=== PATIENT | male | born 1955 | race African-American/Black ===

== ENCOUNTER 2016-11-14 16:54 | Inpatient (IN) | payer MEDICARE, MEDICAID ==
[~2016-11-14] VITALS: Ht 153.4 cm; Wt 86.7 kg
[~2016-11-14 16:54] MED LIST: AMLO2.5T PO; ASPI-515 PO; ASPI-621 PO; BISA10SU2 PR; CLON-275 PO; CLON1PAT8 TP; DOCU-30 PO; ENAL20TA PO; ENAL5TAB34 PO; GABA300C10 PO; INSU100C5 SQ-INSULIN; INSU100I13 SQ; INSU100I18 SQ; INSU100V5 SQ-INSULIN; INSU100V8 SQ; INSU500V SQ; INSULIN 70/30; LISI-170 PO; LISI-420 PO; METF10002 PO; METF500T4 PO; METO25TA35 PO; ONDA4TAB10 PO; OXYC15TA60 PO; OXYC30TA66 PO; PANT40TA3 PO
[2016-11-14 18:25] LABS: BLOOD UREA NITROGEN 23 mg/dL (7-18)
[2016-11-14 18:30] LABS: ASPARTATE AMINO TRANSFERASE 49 U/L (15-37)
[2016-11-14] MEDS ORDERED: SODIUM CHLORIDE 0.9% 1,000ML IVBOLUS ONE (19:30)
[2016-11-14] MEDS ORDERED: SODIUM CHLORIDE FLUSH 10ML SYR IVF ONE (19:30)
[2016-11-14] MEDS ORDERED: MORPHINE SULFATE 4 MG/ML, 1ML IVPush PRN (20:00)
[2016-11-14] MEDS ORDERED: ONDANSETRON 2MG/ML, 2ML IVPush ONE (20:00)
[2016-11-14] MEDS ORDERED: INSULIN REGULAR 100 UNITS/ML, 3ML VIAL SQ-INSULIN ONE (20:30)
[2016-11-14 21:24] LABS: PATH.CAST-FLAG NOT PRESENT; SPERM-FLAG NOT PRESENT; SRC-FLAG NOT PRESENT; XTAL-FLAG NOT PRESENT; YLC-FLAG NOT PRESENT
[2016-11-14] MEDS ORDERED: MORPHINE SULFATE 4 MG/ML, 1ML ONE (21:27)
[2016-11-14] MEDS ORDERED: ONDANSETRON 2MG/ML, 2ML ONE (21:27)
[2016-11-15] VITALS (7 sets, daily range): BP systolic 88–138; BP diastolic 59–89
[2016-11-15] MEDS ORDERED: ONDANSETRON ODT 4 MG PO PRN (01:00)
[2016-11-15] MEDS ORDERED: ACETAMINOPHEN 325 MG TABLET PO PRN (01:00)
[2016-11-15] MEDS ORDERED: DOCUSATE 100 MG CAPSULE PO PRN (01:00)
[2016-11-15] MEDS: INSULIN DETEMIR 100 UNITS/ML, PEN SQ-INSULIN SCH ×2 (01:44→21:36)
[2016-11-15] MEDS: GABAPENTIN 300 MG CAPSULE PO SCH ×2 (10:06→21:34)
[2016-11-15] MEDS: METOPROLOL TARTRATE 25 MG TABLET PO SCH ×2 (10:06→21:37)
[2016-11-15] MEDS: ASPIRIN 81 MG TABLET EC PO SCH (10:06)
[2016-11-15] MEDS: LISINOPRIL 20 MG TABLET PO SCH ×2 (10:07→21:35)
[2016-11-15] MEDS: HEPARIN 5,000 UNITS/ML, 1ML SQ SCH ×2 (10:07→21:35)
[2016-11-15] MEDS: INSULIN ASPART 100 UNITS/ML, PEN SQ-INSULIN SCH ×4 (11:05→21:36)
[2016-11-15 11:33] LABS: BLOOD UREA NITROGEN 25 mg/dL (7-18)
[2016-11-15] MEDS: TAMSULOSIN 0.4 MG CAP.ER.24H PO SCH (18:08)
[2016-11-16 02:20] VITALS: BP 113/80
[2016-11-16 05:51] LABS: BLOOD UREA NITROGEN 30 mg/dL (7-18)
[2016-11-16] MEDS: INSULIN ASPART 100 UNITS/ML, PEN SQ-INSULIN SCH ×3 (07:00→16:51)
[2016-11-16 07:17] VITALS: BP 97/64
[2016-11-16] MEDS: ASPIRIN 81 MG TABLET EC PO SCH (08:58)
[2016-11-16] MEDS: TAMSULOSIN 0.4 MG CAP.ER.24H PO SCH (08:59)
[2016-11-16] MEDS: HEPARIN 5,000 UNITS/ML, 1ML SQ SCH (09:00)
[2016-11-16] MEDS: METOPROLOL TARTRATE 25 MG TABLET PO SCH (09:00)
[2016-11-16] MEDS: LISINOPRIL 20 MG TABLET PO SCH (09:00)
[2016-11-16] MEDS: GABAPENTIN 300 MG CAPSULE PO SCH (09:01)
[2016-11-16 13:14] VITALS: BP 104/71
[2016-11-16] MEDS ORDERED: TAMS-11 PO (15:47)
[2016-11-16] MEDS ORDERED: INSU100I18 SQ (15:47)
[2016-11-16] MEDS ORDERED: METO25TA35 PO (15:47)
[2016-11-16] MEDS ORDERED: INSU100V8 SQ (15:47)
[2016-11-16] MEDS ORDERED: LISI-170 PO (15:47)
[2016-11-17] MEDS ORDERED: LISINOPRIL 20 MG TABLET PO SCH (09:00)
== END 2016-11-16 18:34 | disposition home or self-care (01) | DRG 682 ==
LOC: ED 21:28 → EDIP 21:30 → 4EST 11-15
PROVIDERS: ADMIT Internal Medicine; ATTEND Internal Medicine
PROC: 0T9B70Z Drainage of Bladder with Drainage Device, Via Natural or Artificial Opening (ICD-10-PCS; principal; 2016-11-14)
DX: N17.9 Acute kidney failure, unspecified (principal); E11.00 Type 2 diabetes mellitus with hyperosmolarity without nonketotic hyperglycemic-hyperosmolar coma (NKHHC); K86.1 Other chronic pancreatitis; E11.65 Type 2 diabetes mellitus with hyperglycemia; R33.9 Retention of urine, unspecified; N28.9 Disorder of kidney and ureter, unspecified; F20.9 Schizophrenia, unspecified; F31.9 Bipolar disorder, unspecified; F41.1 Generalized anxiety disorder; F10.21 Alcohol dependence, in remission; I11.9 Hypertensive heart disease without heart failure; I95.9 Hypotension, unspecified; N31.9 Neuromuscular dysfunction of bladder, unspecified; Z79.4 Long term (current) use of insulin; Z82.49 Family history of ischemic heart disease and other diseases of the circulatory system; Z90.49 Acquired absence of other specified parts of digestive tract; Z91.19 Patient's noncompliance with other medical treatment and regimen; T46.4X5A Adverse effect of angiotensin-converting-enzyme inhibitors, initial encounter
CPT/HCPCS: 36415; 74176; 76770; 80048; 80053; 81001; 82010; 82962; 83036; 85025; 93005; 96361; 96374; 96375; J1644; J1815; J2405; J7030

== ENCOUNTER → 2016-11-19 | Outpatient (CLI) | payer MEDICARE, MEDICAID ==
[~2016-11-19] MED LIST changes: +TAMS-11 PO
[2016-11-19 13:09] LABS: BLOOD UREA NITROGEN 21 mg/dL (7-18)
[2016-11-19 13:20] LABS: ASPARTATE AMINO TRANSFERASE 69 U/L (15-37)
== END | disposition home or self-care (01) ==
LOC: CFH 10:57
PROVIDERS: ATTEND Registered Nurse
DX: E11.65 Type 2 diabetes mellitus with hyperglycemia (principal)
CPT/HCPCS: 36415; 80053; 80061; 83036; 84443; 85025

== ENCOUNTER 2016-12-25 01:57 | Inpatient (IN) | payer MEDICARE, MEDICAID ==
[~2016-12-25] VITALS: Ht 162.6 cm; Wt 88.6 kg
[2016-12-25] MEDS ORDERED: NITROGLYCERIN OINT 2%, 1GM TP ONE ×2 (02:30→02:35)
[2016-12-25 03:00] LABS: BLOOD UREA NITROGEN 34 mg/dL (7-18)
[2016-12-25 03:07] LABS: ASPARTATE AMINO TRANSFERASE 139 U/L (15-37); IS PT STATUS REG ER OR PRE ER? YES
[2016-12-25] MEDS ORDERED: ASPIRIN 81 MG TABLET CHEW ONE ×3 (03:56→08:27)
[2016-12-25] MEDS ORDERED: ASPIRIN 81 MG TABLET CHEW PO ONE (04:00)
[2016-12-25] MEDS ORDERED: SODIUM CHLORIDE 0.9% 1,000ML IVBOLUS ONE (04:00)
[2016-12-25] MEDS ORDERED: SODIUM CHLORIDE FLUSH 10ML SYR IVF ONE (04:00)
[2016-12-25 04:01] LABS: DAU SCREEN DISCLAIMER
[2016-12-25] MEDS: HEPARIN 5,000 UNITS/ML, 1ML SQ SCH ×3 (04:30→21:40)
[2016-12-25] MEDS ORDERED: ONDANSETRON 2MG/ML, 2ML IVPush PRN (04:30)
[2016-12-25] MEDS ORDERED: HEPARIN 5,000 UNITS/ML, 1ML ONE (05:24)
[2016-12-25] MEDS: INSULIN ASPART 100 UNITS/ML, PEN SQ-INSULIN SCH ×4 (07:00→21:00)
[2016-12-25] MEDS: ASPIRIN 81 MG TABLET EC PO SCH (08:27)
[2016-12-25] MEDS ORDERED: TAMSULOSIN 0.4 MG CAP.ER.24H ONE (08:27)
[2016-12-25] MEDS: METOPROLOL TARTRATE 25 MG TABLET PO SCH ×2 (08:27→21:41)
[2016-12-25] MEDS: TAMSULOSIN 0.4 MG CAP.ER.24H PO SCH (08:27)
[2016-12-25] MEDS ORDERED: METOPROLOL TARTRATE 50 MG TABLET ONE (08:27)
[2016-12-25] MEDS: FAMOTIDINE 20 MG TABLET PO SCH ×2 (08:27→21:41)
[2016-12-25] MEDS ORDERED: FAMOTIDINE 20 MG TABLET ONE (08:27)
[2016-12-25] MEDS ORDERED: ONDANSETRON 2MG/ML, 2ML ONE (08:34)
[2016-12-25] MEDS ORDERED: MORPHINE SULFATE 4 MG/ML, 1ML ONE (08:34)
[2016-12-25] MEDS: SENNA/DOCUSATE TABLET PO SCH (09:00)
[2016-12-25] MEDS: GABAPENTIN 300 MG CAPSULE PO SCH ×2 (09:00→21:42)
[2016-12-25] MEDS ORDERED: HYDROcodone/APAP 5/325 TABLET ONE (09:25)
[2016-12-25] MEDS: HYDROcodone/APAP 5/325 TABLET PO PRN ×2 (09:28→19:13)
[2016-12-25 10:12] VITALS: BP 144/96
[2016-12-25] MEDS: SODIUM CHLORIDE 0.9% 1,000 ML IV SCH ×2 (10:12→21:40)
[2016-12-25 12:26] LABS: IS PT STATUS REG ER OR PRE ER? NO
[2016-12-25 14:55] VITALS: BP 106/68
[2016-12-25 16:24] LABS: IS PT STATUS REG ER OR PRE ER? NO
[2016-12-25] MEDS ORDERED: INSULIN DETEMIR 100 UNITS/ML, PEN SQ-INSULIN SCH (21:00)
[2016-12-25 21:26] LABS: IS PT STATUS REG ER OR PRE ER? NO
[2016-12-25 21:37] VITALS: BP 132/88
[2016-12-25] MEDS: morphine SULFATE 10 MG/ML, 1ML IVPush PRN (21:41)
[2016-12-26] MEDS: HYDROcodone/APAP 5/325 TABLET PO PRN ×2 (00:22→06:36)
[2016-12-26] MEDS: D5%-0.45% NACL 1,000 ML IV SCH ×2 (00:23→13:20)
[2016-12-26 01:42] VITALS: BP 103/68
[2016-12-26] MEDS: HEPARIN 5,000 UNITS/ML, 1ML SQ SCH ×2 (05:56→13:30)
[2016-12-26] MEDS: morphine SULFATE 10 MG/ML, 1ML IVPush PRN (05:56)
[2016-12-26 06:25] LABS: ASPARTATE AMINO TRANSFERASE 68 U/L (15-37); BLOOD UREA NITROGEN 35 mg/dL (7-18)
[2016-12-26] MEDS: INSULIN ASPART 100 UNITS/ML, PEN SQ-INSULIN SCH ×3 (07:00→16:00)
[2016-12-26] MEDS: GABAPENTIN 300 MG CAPSULE PO SCH (08:01)
[2016-12-26] MEDS: SENNA/DOCUSATE TABLET PO SCH (08:01)
[2016-12-26] MEDS: FAMOTIDINE 20 MG TABLET PO SCH (08:01)
[2016-12-26] MEDS: TAMSULOSIN 0.4 MG CAP.ER.24H PO SCH (08:01)
[2016-12-26] MEDS: ASPIRIN 81 MG TABLET EC PO SCH (08:01)
[2016-12-26] MEDS: METOPROLOL TARTRATE 25 MG TABLET PO SCH (08:01)
[2016-12-26 08:08] VITALS: BP 112/76
[2016-12-26] MEDS ORDERED: REGADENOSON 0.4 MG/5 ML SYRINGE ONE (08:26)
[2016-12-26 13:49] VITALS: BP 119/82
[2016-12-26] MEDS ORDERED: TAMS-11 PO (14:26)
[2016-12-26] MEDS ORDERED: METO25TA35 PO (14:26)
[2016-12-26] MEDS ORDERED: ASPI-621 PO (14:26)
[2016-12-26] MEDS ORDERED: TRAM50TA2 PO (14:26)
[2016-12-26] MEDS ORDERED: GABA300C10 PO (14:26)
[2016-12-27] MEDS ORDERED: FAMOTIDINE 20 MG TABLET PO SCH (09:00)
== END 2016-12-26 18:25 | disposition home or self-care (01) | DRG 280 ==
LOC: ED 02:37 → EDIP 03:55 → 5SO 09:57
PROVIDERS: ADMIT Internal Medicine
DX: I21.4 Non-ST elevation (NSTEMI) myocardial infarction (principal); N17.0 Acute kidney failure with tubular necrosis; I42.9 Cardiomyopathy, unspecified; I16.9 Hypertensive crisis, unspecified; I13.10 Hypertensive heart and chronic kidney disease without heart failure, with stage 1 through stage 4 chronic kidney disease, or unspecified chronic kidney disease; F20.9 Schizophrenia, unspecified; F31.9 Bipolar disorder, unspecified; F41.1 Generalized anxiety disorder; N18.3 Chronic kidney disease, stage 3 (moderate); E11.22 Type 2 diabetes mellitus with diabetic chronic kidney disease; I16.0 Hypertensive urgency; N40.0 Benign prostatic hyperplasia without lower urinary tract symptoms; E78.5 Hyperlipidemia, unspecified; F15.10 Other stimulant abuse, uncomplicated; Z90.49 Acquired absence of other specified parts of digestive tract; Z91.19 Patient's noncompliance with other medical treatment and regimen; Z59.0 Homelessness; Z79.4 Long term (current) use of insulin
CPT/HCPCS: 36415; 71010; 78452; 80053; 80307; 82962; 84484; 85025; 93005; 93017; 96361; 96374; J1644; J2405; J2785; A9502; C9898; J2270; J7030

== ENCOUNTER 2017-02-17 14:27 | Emergency (ER) | payer MEDICARE, MEDICAID ==
[~2017-02-17] VITALS: Ht 162.6 cm; Wt 87.0 kg
[~2017-02-17 14:27] MED LIST changes: +TRAM50TA2 PO
[2017-02-17] MEDS ORDERED: SODIUM CHLORIDE 0.9% 1,000 ML IV ONE (14:58)
[2017-02-17] MEDS ORDERED: HYDROmorphone 1 MG/ML, 1ML IVPush PRN (15:00)
[2017-02-17] MEDS ORDERED: ONDANSETRON 2MG/ML, 2ML IVPush ONE (15:00)
[2017-02-17] MEDS ORDERED: FAMOTIDINE 20 MG/2 ML IVP ONE (15:00)
[2017-02-17 15:36] LABS: ASPARTATE AMINO TRANSFERASE 68 U/L (15-37); BLOOD UREA NITROGEN 17 mg/dL (7-18)
[2017-02-17 17:30] VITALS: BP 168/99
[2017-02-18] MEDS ORDERED: ONDA4TAB10 PO (20:00)
[2017-02-18] MEDS ORDERED: OXYC-302 PO (20:00)
== END 2017-02-17 17:33 | disposition home or self-care (01) ==
LOC: ED 17:27
DX: K85.30 Drug induced acute pancreatitis without necrosis or infection (principal); K85.20 Alcohol induced acute pancreatitis without necrosis or infection; R11.12 Projectile vomiting; E11.9 Type 2 diabetes mellitus without complications; I11.9 Hypertensive heart disease without heart failure; Z90.49 Acquired absence of other specified parts of digestive tract; E78.5 Hyperlipidemia, unspecified
CPT/HCPCS: 36415; 80053; 81001; 83690; 85025; 87086; 99284

== ENCOUNTER 2017-02-18 19:43 | Inpatient (IN) | payer MEDICARE, MEDICAID ==
[~2017-02-18] VITALS: Ht 162.6 cm; Wt 85.0 kg
[2017-02-18] MEDS ORDERED: ONDA4TAB10 PO (20:00)
[2017-02-18] MEDS ORDERED: LABETALOL 5MG/ML, 20ML IVPush ONE (20:00)
[2017-02-18] MEDS ORDERED: SODIUM CHLORIDE FLUSH 10ML SYR IVF ONE (20:00)
[2017-02-18] MEDS ORDERED: OXYC-302 PO (20:00)
[2017-02-18] MEDS ORDERED: LABETALOL 5MG/ML, 20ML ONE (20:08)
[2017-02-18 20:16] LABS: ASPARTATE AMINO TRANSFERASE 46 U/L (15-37); BLOOD UREA NITROGEN 12 mg/dL (7-18)
[2017-02-18 21:36] LABS: PATH.CAST-FLAG NOT PRESENT; SPERM-FLAG NOT PRESENT; SRC-FLAG NOT PRESENT; XTAL-FLAG NOT PRESENT; YLC-FLAG NOT PRESENT
[2017-02-18] MEDS ORDERED: SODIUM CHLORIDE 0.9% 1,000 ML IV ONE (21:51)
[2017-02-18] MEDS ORDERED: SODIUM CHLORIDE FLUSH 10ML SYR IVF PRN (22:00)
[2017-02-18] MEDS ORDERED: hydrALAzine 20 MG/ML, 1ML ONE (22:29)
[2017-02-18] MEDS ORDERED: MORPHINE SULFATE 4 MG/ML, 1ML ONE (22:29)
[2017-02-18] MEDS ORDERED: ACETAMINOPHEN 325 MG TABLET PO PRN (22:30)
[2017-02-18] MEDS ORDERED: BISACODYL 10 MG SUPP PR PRN (22:30)
[2017-02-18] MEDS ORDERED: ONDANSETRON 2MG/ML, 2ML IVPush PRN (22:30)
[2017-02-18] MEDS ORDERED: METOPROLOL TARTRATE 25 MG TABLET PO SCH (22:30)
[2017-02-18] MEDS: morphine SULFATE 10 MG/ML, 1ML IVPush PRN (22:31)
[2017-02-18] MEDS: hydrALAzine 20 MG/ML, 1ML IV PRN (22:32)
[2017-02-18] MEDS: SODIUM CHLORIDE 0.9% 1,000 ML IV SCH (22:39)
[2017-02-18] MEDS ORDERED: ONDANSETRON 2MG/ML, 2ML IVPush ONE (23:30)
[2017-02-18] MEDS ORDERED: HYDROmorphone 1 MG/ML, 1ML IVPush PRN (23:30)
[2017-02-18] MEDS ORDERED: HYDROmorphone 1 MG/ML, 1ML ONE (23:35)
[2017-02-18] MEDS ORDERED: ONDANSETRON 2MG/ML, 2ML ONE (23:35)
[2017-02-19 00:49] VITALS: BP 131/83
[2017-02-19] MEDS: HEPARIN 5,000 UNITS/ML, 1ML SQ SCH ×3 (01:33→17:11)
[2017-02-19] MEDS: GABAPENTIN 300 MG CAPSULE PO SCH ×3 (01:34→20:48)
[2017-02-19] MEDS: METOPROLOL TARTRATE 50 MG TABLET PO SCH ×3 (01:34→20:48)
[2017-02-19] MEDS: INSULIN ASPART 100 UNITS/ML, PEN SQ-INSULIN SCH ×4 (03:22→17:12)
[2017-02-19 03:25] VITALS: BP 154/96
[2017-02-19] MEDS: morphine SULFATE 10 MG/ML, 1ML IVPush PRN ×3 (03:31→20:59)
[2017-02-19 05:45] LABS: ASPARTATE AMINO TRANSFERASE 42 U/L (15-37); BLOOD UREA NITROGEN 13 mg/dL (7-18)
[2017-02-19 05:53] LABS: IS PT STATUS REG ER OR PRE ER? NO
[2017-02-19 07:06] VITALS: BP 144/94
[2017-02-19] MEDS: SODIUM CHLORIDE 0.9% 1,000 ML IV SCH (07:30)
[2017-02-19] MEDS: TAMSULOSIN 0.4 MG CAP.ER.24H PO SCH (09:04)
[2017-02-19] MEDS: ASPIRIN 81 MG TABLET EC PO SCH (09:04)
[2017-02-19 12:11] LABS: IS PT STATUS REG ER OR PRE ER? NO
[2017-02-19 13:48] VITALS: BP 143/91
[2017-02-19 19:31] VITALS: BP 150/94
[2017-02-19] MEDS ORDERED: SODIUM CHLORIDE 0.9% 1,000 ML IV SCH (22:22)
[2017-02-20] MEDS: INSULIN ASPART 100 UNITS/ML, PEN SQ-INSULIN SCH ×5 (01:00→21:57)
[2017-02-20 01:18] VITALS: BP 130/87
[2017-02-20] MEDS: HEPARIN 5,000 UNITS/ML, 1ML SQ SCH ×3 (01:38→18:01)
[2017-02-20] MEDS: morphine SULFATE 10 MG/ML, 1ML IVPush PRN ×2 (05:43→15:46)
[2017-02-20 05:57] LABS: BLOOD UREA NITROGEN 16 mg/dL (7-18)
[2017-02-20 05:58] LABS: ASPARTATE AMINO TRANSFERASE 45 U/L (15-37)
[2017-02-20 07:00] VITALS: BP 160/98
[2017-02-20] MEDS: GABAPENTIN 300 MG CAPSULE PO SCH ×2 (09:14→21:49)
[2017-02-20] MEDS: METOPROLOL TARTRATE 50 MG TABLET PO SCH ×2 (09:14→21:49)
[2017-02-20] MEDS: TAMSULOSIN 0.4 MG CAP.ER.24H PO SCH (09:14)
[2017-02-20] MEDS: ASPIRIN 81 MG TABLET EC PO SCH (09:15)
[2017-02-20 15:43] VITALS: BP 167/102
[2017-02-20] MEDS ORDERED: LACTULOSE 20 GM/30 ML UDC PO PRN (17:00)
[2017-02-20 18:27] VITALS: BP 155/98
[2017-02-20] MEDS ORDERED: morphine SULFATE 10 MG/ML, 1ML IVPush PRN (22:30)
[2017-02-21] VITALS (9 sets, daily range): BP systolic 130–190; BP diastolic 83–121
[2017-02-21] MEDS: HEPARIN 5,000 UNITS/ML, 1ML SQ SCH ×3 (00:52→17:04)
[2017-02-21] MEDS: hydrALAzine 20 MG/ML, 1ML IV PRN (00:52)
[2017-02-21] MEDS: OXYcodone IR 5MG TABLET PO PRN (01:55)
[2017-02-21] MEDS ORDERED: morphine SULFATE 10 MG/ML, 1ML IVPush PRN (02:30)
[2017-02-21 06:05] LABS: ASPARTATE AMINO TRANSFERASE 87 U/L (15-37); BLOOD UREA NITROGEN 15 mg/dL (7-18)
[2017-02-21] MEDS: INSULIN ASPART 100 UNITS/ML, PEN SQ-INSULIN SCH ×4 (07:00→20:59)
[2017-02-21] MEDS: METOPROLOL TARTRATE 50 MG TABLET PO SCH ×2 (09:57→19:01)
[2017-02-21] MEDS: ASPIRIN 81 MG TABLET EC PO SCH (09:57)
[2017-02-21] MEDS: TAMSULOSIN 0.4 MG CAP.ER.24H PO SCH (09:57)
[2017-02-21] MEDS: GABAPENTIN 300 MG CAPSULE PO SCH ×2 (09:57→20:50)
[2017-02-21] MEDS ORDERED: METHYLNALTREXONE 12 MG/0.6 ML SQ SCH (15:00)
[2017-02-22] MEDS: HEPARIN 5,000 UNITS/ML, 1ML SQ SCH ×2 (01:32→09:40)
[2017-02-22 01:33] VITALS: BP 130/83
[2017-02-22] MEDS: OXYcodone IR 5MG TABLET PO PRN (05:33)
[2017-02-22 06:06] LABS: BLOOD UREA NITROGEN 13 mg/dL (7-18)
[2017-02-22 06:10] LABS: ASPARTATE AMINO TRANSFERASE 73 U/L (15-37)
[2017-02-22 07:23] VITALS: BP 126/82
[2017-02-22] MEDS: ASPIRIN 81 MG TABLET EC PO SCH (07:50)
[2017-02-22] MEDS: GABAPENTIN 300 MG CAPSULE PO SCH (07:51)
[2017-02-22] MEDS: TAMSULOSIN 0.4 MG CAP.ER.24H PO SCH (07:51)
[2017-02-22] MEDS: METOPROLOL TARTRATE 50 MG TABLET PO SCH (07:51)
[2017-02-22] MEDS: INSULIN ASPART 100 UNITS/ML, PEN SQ-INSULIN SCH ×2 (07:56→11:32)
[2017-02-22] MEDS ORDERED: INSU100V8 SQ (12:09)
== END 2017-02-22 12:50 | disposition home or self-care (01) | DRG 438 ==
LOC: ED 22:22 → EDIP 22:41 → 4NOR 02-19 00:12
PROVIDERS: ADMIT Internal Medicine; ATTEND Internal Medicine
DX: K85.30 Drug induced acute pancreatitis without necrosis or infection (principal); E43 Unspecified severe protein-calorie malnutrition; E87.1 Hypo-osmolality and hyponatremia; I13.0 Hypertensive heart and chronic kidney disease with heart failure and stage 1 through stage 4 chronic kidney disease, or unspecified chronic kidney disease; I42.8 Other cardiomyopathies; F15.20 Other stimulant dependence, uncomplicated; I42.7 Cardiomyopathy due to drug and external agent; F31.9 Bipolar disorder, unspecified; E11.22 Type 2 diabetes mellitus with diabetic chronic kidney disease; E78.5 Hyperlipidemia, unspecified; F41.1 Generalized anxiety disorder; G89.29 Other chronic pain; T43.625A Adverse effect of amphetamines, initial encounter; Y92.89 Other specified places as the place of occurrence of the external cause; I25.2 Old myocardial infarction; I50.9 Heart failure, unspecified; K59.00 Constipation, unspecified; N18.3 Chronic kidney disease, stage 3 (moderate); N40.0 Benign prostatic hyperplasia without lower urinary tract symptoms; Z79.4 Long term (current) use of insulin; Z90.49 Acquired absence of other specified parts of digestive tract; Z91.19 Patient's noncompliance with other medical treatment and regimen; Z79.82 Long term (current) use of aspirin; Z68.32 Body mass index [BMI] 32.0-32.9, adult; Z82.49 Family history of ischemic heart disease and other diseases of the circulatory system; Z80.9 Family history of malignant neoplasm, unspecified
CPT/HCPCS: 36415; 71010; 76700; 80047; 80053; 81001; 82962; 83036; 83690; 83880; 84484; 85025; 87086; 96374; 96375; 99284; J1170; J1644; J1815; J2405; J0360; J2270; J7030

== ENCOUNTER 2017-05-01 05:38 | Inpatient (IN) | payer MEDICARE, MEDICAID ==
[~2017-05-01] VITALS: Ht 162.6 cm; Wt 82.1 kg
[~2017-05-01 05:38] MED LIST changes: +DOCU-131 PO; -DOCU-30 PO; -ENAL5TAB34 PO; +ENAL5TAB70 PO; +OXYC-302 PO
[2017-05-01] MEDS ORDERED: SODIUM CHLORIDE 0.9% 1,000 ML IV ONE (05:52)
[2017-05-01] MEDS ORDERED: ONDANSETRON 2MG/ML, 2ML ONE (06:00)
[2017-05-01] MEDS ORDERED: SODIUM CHLORIDE 0.9% 1,000ML IVBOLUS ONE (06:00)
[2017-05-01] MEDS ORDERED: SODIUM CHLORIDE FLUSH 10ML SYR IVF ONE (06:00)
[2017-05-01] MEDS ORDERED: ONDANSETRON 2MG/ML, 2ML IVPush ONE (06:00)
[2017-05-01 06:26] LABS: HEMATOCRIT 54.9 % (39.2-51.8); HEMOGLOBIN 18.5 g/dL (13.7-18.0); WHITE BLOOD COUNT 7.8 x10^3/uL (3.4-10)
[2017-05-01 06:37] LABS: ASPARTATE AMINO TRANSFERASE 58 U/L (15-37); BLOOD UREA NITROGEN 29 mg/dL (7-18)
[2017-05-01] MEDS ORDERED: HYDROmorphone 1 MG/ML, 1ML IV ONE (07:30)
[2017-05-01] MEDS ORDERED: HYDROmorphone 1 MG/ML, 1ML ONE (07:37)
[2017-05-01] MEDS ORDERED: HYDROmorphone 2 MG/ML, 1ML ONE ×2 (08:13→10:55)
[2017-05-01] MEDS: HYDROmorphone 1 MG/ML, 1ML IVPush PRN ×2 (08:30→11:00)
[2017-05-01 08:55] LABS: PATH.CAST-FLAG NOT PRESENT; SPERM-FLAG NOT PRESENT; SRC-FLAG NOT PRESENT; XTAL-FLAG NOT PRESENT; YLC-FLAG NOT PRESENT
[2017-05-01] MEDS ORDERED: LABETALOL 5MG/ML, 20ML IVPush ONE ×2 (09:00→11:00)
[2017-05-01] MEDS ORDERED: ONDANSETRON 2MG/ML, 2ML IVPush PRN (11:30)
[2017-05-01] MEDS ORDERED: METOCLOPRAMIDE 5 MG/ML, 2ML IVPush PRN (11:30)
[2017-05-01] MEDS ORDERED: LORazepam 2 MG/ML, 1ML IVPush PRN (11:30)
[2017-05-01] MEDS ORDERED: FAMOTIDINE 20 MG/2 ML IVPush SCH (12:00)
[2017-05-01] MEDS ORDERED: GLUCAGON 1 MG IM PRN (13:00)
[2017-05-01] MEDS ORDERED: DEXTROSE 4 GM TAB.CHEW PO PRN (13:00)
[2017-05-01] MEDS ORDERED: INSULIN REGULAR 100 UNITS/ML, 3ML VIAL SQ-INSULIN SCH (13:00)
[2017-05-01] MEDS ORDERED: DEXTROSE 50%, 50ML SYRINGE IVPush PRN (13:00)
[2017-05-01] MEDS ORDERED: MORPHINE SULFATE 4 MG/ML, 1ML ONE ×3 (13:22→21:16)
[2017-05-01] MEDS: morphine SULFATE 10 MG/ML, 1ML IVPush PRN ×3 (13:39→21:26)
[2017-05-01] MEDS: HEPARIN 5,000 UNITS/ML, 1ML SQ SCH (13:39)
[2017-05-01 14:28] VITALS: BP 167/121
[2017-05-01] MEDS: D5%-0.45NACL+KCL 20MEQ 1,000 ML IV SCH ×2 (14:30→21:22)
[2017-05-01] MEDS: LABETALOL 5MG/ML, 20ML IVPush PRN ×2 (14:30→21:22)
[2017-05-01 15:03] VITALS: BP 161/109
[2017-05-01 19:01] VITALS: BP 154/102
[2017-05-01] MEDS: SODIUM CHLORIDE FLUSH 10ML SYR IVF SCH (19:28)
[2017-05-01] MEDS: INSULIN REGULAR 100 UNITS/ML, 3ML VIAL SQ-INSULIN SCH (21:23)
[2017-05-01] MEDS: FAMOTIDINE 20 MG/2 ML IVPush SCH (21:23)
[2017-05-02 00:52] VITALS: BP 182/109
[2017-05-02] MEDS: LABETALOL 5MG/ML, 20ML IVPush PRN ×2 (01:57→13:20)
[2017-05-02] MEDS ORDERED: MORPHINE SULFATE 4 MG/ML, 1ML ONE (02:29)
[2017-05-02] MEDS: INSULIN REGULAR 100 UNITS/ML, 3ML VIAL SQ-INSULIN SCH ×4 (02:33→21:06)
[2017-05-02] MEDS: morphine SULFATE 10 MG/ML, 1ML IVPush PRN ×4 (02:33→19:56)
[2017-05-02 05:04] LABS: HEMATOCRIT 50.1 % (39.2-51.8); HEMOGLOBIN 16.8 g/dL (13.7-18.0); WHITE BLOOD COUNT 6.5 x10^3/uL (3.4-10)
[2017-05-02 05:15] VITALS: BP 148/90
[2017-05-02 05:15] LABS: BLOOD UREA NITROGEN 20 mg/dL (7-18)
[2017-05-02] MEDS: HEPARIN 5,000 UNITS/ML, 1ML SQ SCH ×2 (06:15→17:50)
[2017-05-02] MEDS: D5%-0.45NACL+KCL 20MEQ 1,000 ML IV SCH (06:15)
[2017-05-02 07:28] VITALS: BP 143/93
[2017-05-02] MEDS: SODIUM CHLORIDE FLUSH 10ML SYR IVF SCH ×2 (08:52→21:06)
[2017-05-02] MEDS: D5%-0.9% NACL 1,000 ML IV SCH ×2 (10:45→19:55)
[2017-05-02 14:30] VITALS: BP 135/105
[2017-05-02 16:13] VITALS: BP 138/90
[2017-05-02] MEDS ORDERED: HYDROmorphone 1 MG/ML, 1ML IV PRN (17:30)
[2017-05-02 19:53] VITALS: BP 149/94
[2017-05-02] MEDS: FAMOTIDINE 20 MG/2 ML IVPush SCH (21:05)
[2017-05-03 02:30] VITALS: BP 139/88
[2017-05-03] MEDS: INSULIN REGULAR 100 UNITS/ML, 3ML VIAL SQ-INSULIN SCH (03:46)
[2017-05-03] MEDS: D5%-0.9% NACL 1,000 ML IV SCH (03:47)
[2017-05-03 05:41] LABS: BLOOD UREA NITROGEN 14 mg/dL (7-18)
[2017-05-03 05:46] LABS: ASPARTATE AMINO TRANSFERASE 53 U/L (15-37)
[2017-05-03 05:47] LABS: HEMATOCRIT 46.5 % (39.2-51.8); HEMOGLOBIN 15.7 g/dL (13.7-18.0)
[2017-05-03] MEDS: HEPARIN 5,000 UNITS/ML, 1ML SQ SCH (05:57)
== END 2017-05-03 06:40 | disposition left against medical advice (07) | DRG 438 ==
LOC: ED 06:34 → EDIP 10:42 → 4WST 12:59
PROVIDERS: ADMIT Internal Medicine; ATTEND Internal Medicine
DX: K85.90 Acute pancreatitis without necrosis or infection, unspecified (principal); N17.0 Acute kidney failure with tubular necrosis; I13.0 Hypertensive heart and chronic kidney disease with heart failure and stage 1 through stage 4 chronic kidney disease, or unspecified chronic kidney disease; E11.22 Type 2 diabetes mellitus with diabetic chronic kidney disease; N18.3 Chronic kidney disease, stage 3 (moderate); E11.65 Type 2 diabetes mellitus with hyperglycemia; F15.90 Other stimulant use, unspecified, uncomplicated; F31.9 Bipolar disorder, unspecified; G47.00 Insomnia, unspecified; K59.00 Constipation, unspecified; Z59.0 Homelessness; Z91.19 Patient's noncompliance with other medical treatment and regimen; Z90.49 Acquired absence of other specified parts of digestive tract
CPT/HCPCS: 36415; 74000; 74020; 74150; 74176; 80048; 80053; 81001; 82962; 83605; 83690; 83735; 85025; 93005; 96374; 96375; 96376; J1170; J1644; J1815; J2405; J7042; J2270; J3480; J7030; S0028

== ENCOUNTER 2018-04-18 12:14 | Inpatient (IN) | payer MEDICARE, MEDICAID ==
[~2018-04-18] VITALS: Ht 162.6 cm; Wt 88.7 kg
[~2018-04-18 12:14] MED LIST changes: -AMLO2.5T PO; +AMLO2.5T3 PO; +METF500T17 PO; -METF500T4 PO
[2018-04-18] MEDS ORDERED: SODIUM CHLORIDE 0.9% 1,000ML IVBOLUS ONE ×2 (12:30→13:30)
[2018-04-18] MEDS ORDERED: LABETALOL 5MG/ML, 20ML IVPush ONE (12:30)
[2018-04-18] MEDS ORDERED: SODIUM CHLORIDE FLUSH 10ML SYR IVF ONE (12:30)
[2018-04-18] MEDS ORDERED: MORPHINE SULFATE 4 MG/ML, 1ML IVPush PRN (12:30)
[2018-04-18] MEDS ORDERED: LABETALOL 5MG/ML, 20ML ONE (12:39)
[2018-04-18] MEDS ORDERED: MORPHINE SULFATE 4 MG/ML, 1ML ONE (12:39)
[2018-04-18 12:44] LABS: BASOPHILS # (AUTO) 0.01 x10^3/uL (0-0.1); BASOPHILS % (AUTO) 0 % (0-1); EOSINOPHILS # (AUTO) 0.05 x10^3/uL (0-0.4); EOSINOPHILS % (AUTO) 1 % (1-7); LYMPHOCYTES # (AUTO) 1.51 x10^3/uL (1-3.4); LYMPHOCYTES % (AUTO) 24 % (22-44); MD NO; MEAN CORPUSCULAR HEMOGLOBIN 30.5 pg (27.5-34.5); MEAN CORPUSCULAR HGB CONC 34.1 g/dL (33.2-36.2); MEAN CORPUSCULAR VOLUME 89.3 fL (81-97); MEAN PLATELET VOLUME 8.5 fL (7.4-10.4); MONOCYTES # (AUTO) 0.43 x10^3/uL (0.2-0.8); MONOCYTES % (AUTO) 7 % (2-9); NEUTROPHILS # (AUTO) 4.27 x10^3/uL (1.8-6.8); NEUTROPHILS % (AUTO) 68 % (42-75); PLATELET COUNT 189 x10^3/uL (130-400); RED BLOOD COUNT 4.77 x10^6/uL (4.38-5.82); RED CELL DISTRIBUTION WIDTH 13.4 % (9.4-14.8)
[2018-04-18 12:50] LABS: ALBUMIN 1.9 g/dL (3.4-5.0); ANION GAP 9 mmol/L (5-15); CALCIUM 7.3 mg/dL (8.5-10.1); CHLORIDE 111 mmol/L (98-107)
[2018-04-18 12:54] LABS: CREATININE 3.18 mg/dL (0.7-1.3)
[2018-04-18 12:55] LABS: ALANINE AMINOTRANSFERASE 58 U/L (12-78); ALKALINE PHOSPHATASE 246 U/L (45-117); BILIRUBIN,TOTAL 0.5 mg/dL (0.2-1.0); TOTAL PROTEIN 6.3 g/dL (6.4-8.2)
[2018-04-18] MEDS ORDERED: ACETAMINOPHEN 325 MG TABLET PO PRN (14:00)
[2018-04-18] MEDS ORDERED: morphine SULFATE 10 MG/ML, 1ML IVPush PRN (14:00)
[2018-04-18] MEDS ORDERED: ONDANSETRON 2MG/ML, 2ML IVPush PRN (14:00)
[2018-04-18 15:02] VITALS: BP 134/100
[2018-04-18 15:32] LABS: HEMOGLOBIN A1C 6.5 % (4.2-6.3)
[2018-04-18] MEDS: HEPARIN 5,000 UNITS/ML, 1ML SQ SCH (17:13)
[2018-04-18] MEDS: D5%-0.45NACL+KCL 20MEQ 1,000 ML IV SCH (17:14)
[2018-04-18] MEDS: CEFTRIAXONE 1,000 MG in SODIUM CHLORIDE 0.9% 50 ML IV SCH (17:14)
[2018-04-18] MEDS: NICOTINE 14MG/24 HR PATCH.TD24 TD SCH (17:15)
[2018-04-18] MEDS: INSULIN LISPRO 100 UNITS/ML, PEN SQ-INSULIN SCH ×2 (18:09→20:04)
[2018-04-18 19:44] VITALS: BP 159/116
[2018-04-18] MEDS: DOXYCYCLINE 100MG TABLET PO SCH (20:07)
[2018-04-18] MEDS: GABAPENTIN 300 MG CAPSULE PO SCH (20:07)
[2018-04-18] MEDS: METOPROLOL TARTRATE 25 MG TABLET PO SCH (20:07)
[2018-04-18] MEDS: ONDANSETRON ODT 4 MG PO PRN (22:18)
[2018-04-18 22:20] VITALS: BP 158/117
[2018-04-18 22:33] VITALS: BP 147/109
[2018-04-18] MEDS: hydrALAzine 20 MG/ML, 1ML IVPush PRN (22:42)
[2018-04-19] MEDS: HEPARIN 5,000 UNITS/ML, 1ML SQ SCH ×3 (01:38→18:22)
[2018-04-19 01:45] VITALS: BP 134/95
[2018-04-19] MEDS: D5%-0.45NACL+KCL 20MEQ 1,000 ML IV SCH (03:45)
[2018-04-19 05:20] LABS: BASOPHILS # (AUTO) 0.02 x10^3/uL (0-0.1); BASOPHILS % (AUTO) 0 % (0-1); EOSINOPHILS # (AUTO) 0.08 x10^3/uL (0-0.4); EOSINOPHILS % (AUTO) 2 % (1-7); LYMPHOCYTES # (AUTO) 1.13 x10^3/uL (1-3.4); LYMPHOCYTES % (AUTO) 22 % (22-44); MD NO; MEAN CORPUSCULAR HEMOGLOBIN 31.1 pg (27.5-34.5); MEAN CORPUSCULAR HGB CONC 34.1 g/dL (33.2-36.2); MEAN CORPUSCULAR VOLUME 91.4 fL (81-97); MEAN PLATELET VOLUME 9.2 fL (7.4-10.4); MONOCYTES # (AUTO) 0.32 x10^3/uL (0.2-0.8); MONOCYTES % (AUTO) 6 % (2-9); NEUTROPHILS # (AUTO) 3.65 x10^3/uL (1.8-6.8); NEUTROPHILS % (AUTO) 70 % (42-75); PLATELET COUNT 176 x10^3/uL (130-400); RED BLOOD COUNT 4.52 x10^6/uL (4.38-5.82); RED CELL DISTRIBUTION WIDTH 13.9 % (9.4-14.8)
[2018-04-19 05:37] LABS: CHLORIDE 113 mmol/L (98-107)
[2018-04-19 05:46] LABS: ALANINE AMINOTRANSFERASE 51 U/L (12-78); ALBUMIN 1.6 g/dL (3.4-5.0); ALKALINE PHOSPHATASE 206 U/L (45-117); ANION GAP 6 mmol/L (5-15); BILIRUBIN,TOTAL 0.7 mg/dL (0.2-1.0); CALCIUM 7.3 mg/dL (8.5-10.1); CREATININE 2.92 mg/dL (0.7-1.3)
[2018-04-19 06:58] VITALS: BP 145/88
[2018-04-19] MEDS: INSULIN LISPRO 100 UNITS/ML, PEN SQ-INSULIN SCH ×4 (07:00→20:17)
[2018-04-19] MEDS ORDERED: CALCIUM GLUCONATE 0.46MEQ/1ML IVPush ONE (08:00)
[2018-04-19] MEDS ORDERED: INSULIN REGULAR 100 UNITS/ML, 3ML VIAL IVPush SCH (08:00)
[2018-04-19] MEDS ORDERED: MAGNESIUM SULFATE PMX 2GM/50ML 50 ML IV ONE (08:00)
[2018-04-19] MEDS ORDERED: CALCIUM GLUCONATE 4.6 MEQ in SODIUM CHLORIDE 0.9% 50 ML IV ONE (08:00)
[2018-04-19] MEDS ORDERED: SODIUM BICARB 8.4%, 50ML SYRINGE IVPush ONE (08:00)
[2018-04-19] MEDS ORDERED: DEXTROSE 50%, 50ML SYRINGE IVPush ONE (08:00)
[2018-04-19] MEDS: D5%-0.45% NACL 1,000 ML IV SCH (09:14)
[2018-04-19] MEDS: GABAPENTIN 300 MG CAPSULE PO SCH ×2 (09:16→20:22)
[2018-04-19] MEDS: METOPROLOL TARTRATE 25 MG TABLET PO SCH ×2 (09:17→20:22)
[2018-04-19] MEDS: ASPIRIN 81 MG TABLET EC PO SCH (09:17)
[2018-04-19] MEDS: DOXYCYCLINE 100MG TABLET PO SCH ×2 (09:17→20:23)
[2018-04-19] MEDS: TAMSULOSIN 0.4 MG CAP.ER.24H PO SCH (09:17)
[2018-04-19] MEDS: ONDANSETRON ODT 4 MG PO PRN (09:19)
[2018-04-19 11:10] LABS: ANION GAP 9 mmol/L (5-15); CALCIUM 7.2 mg/dL (8.5-10.1); CHLORIDE 113 mmol/L (98-107); CREATININE 2.72 mg/dL (0.7-1.3)
[2018-04-19 13:10] VITALS: BP 135/96
[2018-04-19] MEDS: NICOTINE 14MG/24 HR PATCH.TD24 TD SCH (17:00)
[2018-04-19] MEDS: CEFTRIAXONE 1,000 MG in SODIUM CHLORIDE 0.9% 50 ML IV SCH (18:22)
[2018-04-19 20:02] VITALS: BP 139/95
[2018-04-20] MEDS: D5%-0.45% NACL 1,000 ML IV SCH ×2 (01:12→09:16)
[2018-04-20] MEDS: HEPARIN 5,000 UNITS/ML, 1ML SQ SCH ×3 (01:57→17:28)
[2018-04-20 02:20] VITALS: BP 158/95
[2018-04-20] MEDS: INSULIN LISPRO 100 UNITS/ML, PEN SQ-INSULIN SCH ×4 (07:00→21:00)
[2018-04-20 07:30] VITALS: BP 135/81
[2018-04-20] MEDS: DOXYCYCLINE 100MG TABLET PO SCH ×2 (09:17→21:09)
[2018-04-20] MEDS: TAMSULOSIN 0.4 MG CAP.ER.24H PO SCH (09:17)
[2018-04-20] MEDS: ASPIRIN 81 MG TABLET EC PO SCH (09:17)
[2018-04-20] MEDS: METOPROLOL TARTRATE 25 MG TABLET PO SCH ×2 (09:17→21:09)
[2018-04-20] MEDS: GABAPENTIN 300 MG CAPSULE PO SCH ×2 (09:17→21:09)
[2018-04-20 11:32] LABS: BASOPHILS # (AUTO) 0.02 x10^3/uL (0-0.1); BASOPHILS % (AUTO) 0 % (0-1); EOSINOPHILS # (AUTO) 0.11 x10^3/uL (0-0.4); EOSINOPHILS % (AUTO) 2 % (1-7); LYMPHOCYTES # (AUTO) 1.57 x10^3/uL (1-3.4); LYMPHOCYTES % (AUTO) 26 % (22-44); MD NO; MEAN CORPUSCULAR HEMOGLOBIN 30.5 pg (27.5-34.5); MEAN CORPUSCULAR HGB CONC 33.5 g/dL (33.2-36.2); MEAN CORPUSCULAR VOLUME 91.1 fL (81-97); MONOCYTES # (AUTO) 0.58 x10^3/uL (0.2-0.8); MONOCYTES % (AUTO) 10 % (2-9); NEUTROPHILS # (AUTO) 3.76 x10^3/uL (1.8-6.8); NEUTROPHILS % (AUTO) 62 % (42-75); PLATELET COUNT 173 x10^3/uL (130-400); RED CELL DISTRIBUTION WIDTH 13.7 % (9.4-14.8)
[2018-04-20 11:44] LABS: CHLORIDE 108 mmol/L (98-107)
[2018-04-20 11:50] LABS: ALANINE AMINOTRANSFERASE 55 U/L (12-78); ALBUMIN 1.6 g/dL (3.4-5.0); ALKALINE PHOSPHATASE 204 U/L (45-117); BILIRUBIN,TOTAL 0.5 mg/dL (0.2-1.0); CALCIUM 7.7 mg/dL (8.5-10.1); CREATININE 2.93 mg/dL (0.7-1.3)
[2018-04-20 13:17] LABS: ANION GAP 6 mmol/L (5-15)
[2018-04-20 13:34] VITALS: BP 163/113
[2018-04-20] MEDS: hydrALAzine 20 MG/ML, 1ML IVPush PRN (14:04)
[2018-04-20] MEDS ORDERED: SODIUM CHLORIDE 0.9% 1,000ML IVBOLUS ONE (16:00)
[2018-04-20 16:36] VITALS: BP 137/80
[2018-04-20] MEDS: NICOTINE 14MG/24 HR PATCH.TD24 TD SCH (17:00)
[2018-04-20] MEDS ORDERED: PNEUMOCOCCAL 23 VACCINE IM-VACC ONE (17:00)
[2018-04-20] MEDS: CEFTRIAXONE 1,000 MG in SODIUM CHLORIDE 0.9% 50 ML IV SCH (17:28)
[2018-04-20 20:30] VITALS: BP 147/92
[2018-04-20] MEDS: SODIUM CHLORIDE 0.9% 1,000 ML IV SCH (20:30)
[2018-04-21] VITALS (8 sets, daily range): BP systolic 140–184; BP diastolic 88–117
[2018-04-21] MEDS: HEPARIN 5,000 UNITS/ML, 1ML SQ SCH ×3 (00:51→17:51)
[2018-04-21] MEDS: SODIUM CHLORIDE 0.9% 1,000 ML IV SCH (03:09)
[2018-04-21 06:00] LABS: BASOPHILS # (AUTO) 0.02 x10^3/uL (0-0.1); BASOPHILS % (AUTO) 0 % (0-1); EOSINOPHILS # (AUTO) 0.13 x10^3/uL (0-0.4); EOSINOPHILS % (AUTO) 2 % (1-7); LYMPHOCYTES # (AUTO) 2.24 x10^3/uL (1-3.4); LYMPHOCYTES % (AUTO) 37 % (22-44); MD NO; MEAN CORPUSCULAR HEMOGLOBIN 30.5 pg (27.5-34.5); MEAN CORPUSCULAR HGB CONC 33.6 g/dL (33.2-36.2); MEAN CORPUSCULAR VOLUME 90.7 fL (81-97); MEAN PLATELET VOLUME 8.9 fL (7.4-10.4); MONOCYTES # (AUTO) 0.67 x10^3/uL (0.2-0.8); MONOCYTES % (AUTO) 11 % (2-9); NEUTROPHILS # (AUTO) 3.01 x10^3/uL (1.8-6.8); NEUTROPHILS % (AUTO) 50 % (42-75); PLATELET COUNT 181 x10^3/uL (130-400); RED BLOOD COUNT 4.37 x10^6/uL (4.38-5.82); RED CELL DISTRIBUTION WIDTH 13.6 % (9.4-14.8)
[2018-04-21 06:07] LABS: ANION GAP 8 mmol/L (5-15); CALCIUM 7.5 mg/dL (8.5-10.1); CHLORIDE 110 mmol/L (98-107)
[2018-04-21 06:09] LABS: CREATININE 2.93 mg/dL (0.7-1.3)
[2018-04-21] MEDS: INSULIN LISPRO 100 UNITS/ML, PEN SQ-INSULIN SCH ×4 (06:17→20:46)
[2018-04-21] MEDS: ASPIRIN 81 MG TABLET EC PO SCH (08:17)
[2018-04-21] MEDS: METOPROLOL TARTRATE 25 MG TABLET PO SCH (08:18)
[2018-04-21] MEDS: GABAPENTIN 300 MG CAPSULE PO SCH ×2 (08:19→20:42)
[2018-04-21] MEDS: DOXYCYCLINE 100MG TABLET PO SCH ×2 (08:19→20:42)
[2018-04-21] MEDS: hydrALAzine 20 MG/ML, 1ML IVPush PRN ×2 (08:37→12:58)
[2018-04-21] MEDS: TAMSULOSIN 0.4 MG CAP.ER.24H PO SCH (11:23)
[2018-04-21] MEDS ORDERED: LABETALOL 5MG/ML, 20ML IVPush ONE (12:00)
[2018-04-21] MEDS: NICOTINE 14MG/24 HR PATCH.TD24 TD SCH (17:00)
[2018-04-21] MEDS ORDERED: MAGNESIUM SULFATE PMX 2GM/50ML 50 ML IV ONE (17:00)
[2018-04-21] MEDS ORDERED: AMLODIPINE 5 MG TABLET PO ONE (17:00)
[2018-04-21] MEDS: CEFTRIAXONE 1,000 MG in SODIUM CHLORIDE 0.9% 50 ML IV SCH (17:52)
[2018-04-21 18:08] LABS: MICROSCOPIC AUTO
[2018-04-21 18:12] LABS: CULTURE INDICATED? NO
[2018-04-21] MEDS: METOPROLOL TARTRATE 50 MG TABLET PO SCH (20:42)
[2018-04-22] MEDS: HEPARIN 5,000 UNITS/ML, 1ML SQ SCH ×2 (00:59→08:21)
[2018-04-22 01:25] VITALS: BP 161/95
[2018-04-22 04:30] LABS: CHLORIDE,URINE RANDOM 110 mmol/L; POTASSIUM,URINE RANDOM 25 mmol/L; SODIUM,URINE RANDOM 106 mmol/L
[2018-04-22 04:39] LABS: TOTAL PROTEIN,URINE RANDOM 310 mg/dL (0-12)
[2018-04-22] MEDS: INSULIN LISPRO 100 UNITS/ML, PEN SQ-INSULIN SCH ×2 (06:40→11:00)
[2018-04-22 07:19] VITALS: BP 168/102
[2018-04-22 08:17] LABS: BASOPHILS # (AUTO) 0.03 x10^3/uL (0-0.1); BASOPHILS % (AUTO) 1 % (0-1); EOSINOPHILS # (AUTO) 0.13 x10^3/uL (0-0.4); EOSINOPHILS % (AUTO) 2 % (1-7); LYMPHOCYTES # (AUTO) 2.16 x10^3/uL (1-3.4); LYMPHOCYTES % (AUTO) 37 % (22-44); MD NO; MEAN CORPUSCULAR HEMOGLOBIN 31.2 pg (27.5-34.5); MEAN CORPUSCULAR HGB CONC 34.5 g/dL (33.2-36.2); MEAN CORPUSCULAR VOLUME 90.3 fL (81-97); MEAN PLATELET VOLUME 8.6 fL (7.4-10.4); MONOCYTES # (AUTO) 0.58 x10^3/uL (0.2-0.8); MONOCYTES % (AUTO) 10 % (2-9); NEUTROPHILS # (AUTO) 2.93 x10^3/uL (1.8-6.8); NEUTROPHILS % (AUTO) 50 % (42-75); PLATELET COUNT 222 x10^3/uL (130-400); RED BLOOD COUNT 4.68 x10^6/uL (4.38-5.82); RED CELL DISTRIBUTION WIDTH 13.4 % (9.4-14.8)
[2018-04-22] MEDS: TAMSULOSIN 0.4 MG CAP.ER.24H PO SCH (08:21)
[2018-04-22] MEDS: GABAPENTIN 300 MG CAPSULE PO SCH (08:21)
[2018-04-22] MEDS: METOPROLOL TARTRATE 50 MG TABLET PO SCH (08:22)
[2018-04-22] MEDS: ASPIRIN 81 MG TABLET EC PO SCH (08:22)
[2018-04-22] MEDS: DOXYCYCLINE 100MG TABLET PO SCH (08:23)
[2018-04-22 08:26] LABS: ALANINE AMINOTRANSFERASE 56 U/L (12-78); ALBUMIN 1.6 g/dL (3.4-5.0); ANION GAP 8 mmol/L (5-15); CALCIUM 7.7 mg/dL (8.5-10.1); CHLORIDE 111 mmol/L (98-107); CREATININE 2.92 mg/dL (0.7-1.3)
[2018-04-22 08:28] LABS: ALKALINE PHOSPHATASE 273 U/L (45-117); BILIRUBIN,TOTAL 0.3 mg/dL (0.2-1.0); TOTAL PROTEIN 6.2 g/dL (6.4-8.2)
[2018-04-22] MEDS ORDERED: AMLODIPINE 10 MG TAB PO SCH (09:00)
[2018-04-22 13:34] VITALS: BP 165/99
[2018-04-22] MEDS ORDERED: CARVEDILOL 12.5 MG TABLET PO SCH (18:00)
== END 2018-04-22 15:00 | disposition left against medical advice (07) | DRG 682 ==
LOC: ED 14:02 → EDIP 14:23 → 4NOR 14:56
PROVIDERS: ADMIT Hospitalist; ATTEND Hospitalist
DX: N17.9 Acute kidney failure, unspecified (principal); J18.9 Pneumonia, unspecified organism; E43 Unspecified severe protein-calorie malnutrition; E11.65 Type 2 diabetes mellitus with hyperglycemia; N18.3 Chronic kidney disease, stage 3 (moderate); I12.9 Hypertensive chronic kidney disease with stage 1 through stage 4 chronic kidney disease, or unspecified chronic kidney disease; F20.9 Schizophrenia, unspecified; F31.9 Bipolar disorder, unspecified; F41.1 Generalized anxiety disorder; F10.10 Alcohol abuse, uncomplicated; E11.22 Type 2 diabetes mellitus with diabetic chronic kidney disease; E87.5 Hyperkalemia; R74.0 Nonspecific elevation of levels of transaminase and lactic acid dehydrogenase [LDH]; E86.0 Dehydration; E78.5 Hyperlipidemia, unspecified; Z53.21 Procedure and treatment not carried out due to patient leaving prior to being seen by health care provider; I25.2 Old myocardial infarction; Z71.41 Alcohol abuse counseling and surveillance of alcoholic; Z91.19 Patient's noncompliance with other medical treatment and regimen; Z90.49 Acquired absence of other specified parts of digestive tract; Z59.0 Homelessness; Z80.9 Family history of malignant neoplasm, unspecified; Z83.3 Family history of diabetes mellitus; Z82.49 Family history of ischemic heart disease and other diseases of the circulatory system; Z68.33 Body mass index [BMI] 33.0-33.9, adult
CPT/HCPCS: 36415; 74176; 76770; 80048; 80053; 80307; 81001; 82436; 82962; 83036; 83690; 83735; 84100; 84133; 84156; 84300; 85025; 87040; 90732; 93306; 96361; 96374; 96375; G0378; J0610; J0696; J1644; J1815; Q0162; J0360; J2270; J3475; J3480; J7030

== ENCOUNTER 2018-04-24 11:40 | Inpatient (IN) | payer MEDICARE, MEDICAID ==
[~2018-04-24] VITALS: Ht 162.6 cm; Wt 91.8 kg
[2018-04-24] MEDS ORDERED: SODIUM CHLORIDE FLUSH 10ML SYR IVF ONE (12:00)
[2018-04-24 12:46] LABS: BASOPHILS # (AUTO) 0.01 x10^3/uL (0-0.1); BASOPHILS % (AUTO) 0 % (0-1); EOSINOPHILS # (AUTO) 0.12 x10^3/uL (0-0.4); EOSINOPHILS % (AUTO) 2 % (1-7); LYMPHOCYTES % (AUTO) 28 % (22-44); MD NO; MEAN CORPUSCULAR HGB CONC 33.9 g/dL (33.2-36.2); MEAN CORPUSCULAR VOLUME 91.4 fL (81-97); MEAN PLATELET VOLUME 8.6 fL (7.4-10.4); MONOCYTES # (AUTO) 0.45 x10^3/uL (0.2-0.8); MONOCYTES % (AUTO) 9 % (2-9); NEUTROPHILS # (AUTO) 2.95 x10^3/uL (1.8-6.8); NEUTROPHILS % (AUTO) 60 % (42-75); PLATELET COUNT 182 x10^3/uL (130-400); RED BLOOD COUNT 4.38 x10^6/uL (4.38-5.82); RED CELL DISTRIBUTION WIDTH 14.1 % (9.4-14.8)
[2018-04-24 12:52] LABS: INTERNATIONAL NORMALIZED RATIO 0.97 (0.93-1.1); PROTHROMBIN TIME 10.1 Seconds (9.6-11.5)
[2018-04-24 12:55] LABS: ALBUMIN 1.8 g/dL (3.4-5.0); ANION GAP 11 mmol/L (5-15); CALCIUM 7.6 mg/dL (8.5-10.1); CHLORIDE 112 mmol/L (98-107)
[2018-04-24 13:01] LABS: ALANINE AMINOTRANSFERASE 61 U/L (12-78); ALKALINE PHOSPHATASE 244 U/L (45-117); BILIRUBIN,TOTAL 0.3 mg/dL (0.2-1.0); CREATININE 2.89 mg/dL (0.7-1.3); TOTAL PROTEIN 6.1 g/dL (6.4-8.2)
[2018-04-24] MEDS ORDERED: AZITHROMYCIN 500 MG in SODIUM CHLORIDE 0.9% 250 ML IVPB ONE (13:30)
[2018-04-24] MEDS ORDERED: CEFTRIAXONE 1,000 MG in SODIUM CHLORIDE 0.9% 50 ML IVPB ONE (13:30)
[2018-04-24] MEDS ORDERED: CEFTRIAXONE PMX 1GM/50ML 50 ML ONE (13:41)
[2018-04-24] MEDS ORDERED: GUAIFENESIN/DM 200-20MG, 10ML UDC PO PRN (14:00)
[2018-04-24] MEDS ORDERED: ONDANSETRON 2MG/ML, 2ML IVPush PRN (14:00)
[2018-04-24] MEDS ORDERED: NITROGLYCERIN 0.4 MG BOTTLE (25 TABS) SL PRN (14:00)
[2018-04-24] MEDS ORDERED: ACETAMINOPHEN 325 MG TABLET PO PRN (14:00)
[2018-04-24] MEDS ORDERED: SODIUM CHLORIDE FLUSH 10ML SYR IVF PRN (14:00)
[2018-04-24] MEDS ORDERED: ONDANSETRON ODT 4 MG PO PRN (14:00)
[2018-04-24] MEDS ORDERED: TRAZODONE 50MG TABLET PO PRN (14:00)
[2018-04-24] MEDS ORDERED: morphine SULFATE 10 MG/ML, 1ML IVPush PRN (14:00)
[2018-04-24 14:27] LABS: TROPONIN I 0.165 ng/mL (0.000-0.045)
[2018-04-24 15:25] VITALS: BP 170/117
[2018-04-24] MEDS: HEPARIN 5,000 UNITS/ML, 1ML SQ SCH ×2 (15:52→23:23)
[2018-04-24] MEDS: hydrALAzine 20 MG/ML, 1ML IVPush PRN (15:53)
[2018-04-24] MEDS: INSULIN LISPRO 100 UNITS/ML, PEN SQ-INSULIN SCH ×2 (16:00→20:50)
[2018-04-24 16:38] VITALS: BP 175/108
[2018-04-24] MEDS: LABETALOL 5MG/ML, 20ML IVPush PRN (16:47)
[2018-04-24 17:40] VITALS: BP 162/99
[2018-04-24 18:56] VITALS: BP 157/86
[2018-04-24 19:21] LABS: HEMOGLOBIN A1C 6.4 % (4.2-6.3)
[2018-04-24 20:19] LABS: TROPONIN I 0.146 ng/mL (0.000-0.045)
[2018-04-24] MEDS: METOPROLOL TARTRATE 25 MG TABLET PO SCH (20:49)
[2018-04-24] MEDS: GABAPENTIN 300 MG CAPSULE PO SCH (20:49)
[2018-04-24] MEDS: INSULIN GLARGINE 100 UNITS/ML, PEN SQ-INSULIN SCH (20:50)
[2018-04-25 02:10] VITALS: BP_SYST 173; BP_SYST 182; BP_DIAS 103; BP_DIAS 117
[2018-04-25] MEDS: LABETALOL 5MG/ML, 20ML IVPush PRN (02:33)
[2018-04-25 03:57] LABS: BASOPHILS # (AUTO) 0.03 x10^3/uL (0-0.1); BASOPHILS % (AUTO) 1 % (0-1); EOSINOPHILS # (AUTO) 0.13 x10^3/uL (0-0.4); EOSINOPHILS % (AUTO) 3 % (1-7); LYMPHOCYTES # (AUTO) 2.17 x10^3/uL (1-3.4); LYMPHOCYTES % (AUTO) 42 % (22-44); MD NO; MEAN CORPUSCULAR HEMOGLOBIN 30.3 pg (27.5-34.5); MEAN CORPUSCULAR HGB CONC 33.3 g/dL (33.2-36.2); MEAN PLATELET VOLUME 8.2 fL (7.4-10.4); MONOCYTES # (AUTO) 0.54 x10^3/uL (0.2-0.8); MONOCYTES % (AUTO) 11 % (2-9); NEUTROPHILS # (AUTO) 2.27 x10^3/uL (1.8-6.8); NEUTROPHILS % (AUTO) 44 % (42-75); PLATELET COUNT 179 x10^3/uL (130-400); RED BLOOD COUNT 4.16 x10^6/uL (4.38-5.82); RED CELL DISTRIBUTION WIDTH 13.9 % (9.4-14.8)
[2018-04-25 04:08] LABS: ALBUMIN 1.5 g/dL (3.4-5.0); ANION GAP 9 mmol/L (5-15); CALCIUM 7.4 mg/dL (8.5-10.1); CHLORIDE 112 mmol/L (98-107)
[2018-04-25 04:11] LABS: ALANINE AMINOTRANSFERASE 54 U/L (12-78); ALKALINE PHOSPHATASE 215 U/L (45-117); BILIRUBIN,TOTAL 0.3 mg/dL (0.2-1.0); CHOL/HDL RATIO 3.2; CHOLESTEROL, TOTAL 127 mg/dL (140-239); CREATININE 2.69 mg/dL (0.7-1.3); HDL CHOLESTEROL (DIRECT) 40 mg/dL (40-60); TOTAL PROTEIN 5.6 g/dL (6.4-8.2); TRIGLYCERIDES 133 mg/dL (50-200); VLDL CHOLESTEROL 27 mg/dL (0-25)
[2018-04-25 04:12] LABS: HDL CHOL % 31 % (26-37); LDL CHOLESTEROL,CALCULATED 60 mg/dL (54-169); LDL/HDL RATIO 1.5 (0.5-3.0)
[2018-04-25] MEDS: hydrALAzine 20 MG/ML, 1ML IVPush PRN (04:13)
[2018-04-25 05:04] VITALS: BP 138/79
[2018-04-25] MEDS: HEPARIN 5,000 UNITS/ML, 1ML SQ SCH ×3 (05:07→20:49)
[2018-04-25] MEDS: INSULIN LISPRO 100 UNITS/ML, PEN SQ-INSULIN SCH ×4 (07:00→20:08)
[2018-04-25 07:50] VITALS: BP 144/83
[2018-04-25] MEDS: TAMSULOSIN 0.4 MG CAP.ER.24H PO SCH (08:28)
[2018-04-25] MEDS: AZITHROMYCIN 250 MG TABLET PO SCH (08:29)
[2018-04-25] MEDS: ASPIRIN 81 MG TABLET EC PO SCH (08:29)
[2018-04-25] MEDS: GABAPENTIN 300 MG CAPSULE PO SCH ×2 (08:29→20:13)
[2018-04-25] MEDS: METOPROLOL TARTRATE 25 MG TABLET PO SCH ×2 (08:29→20:13)
[2018-04-25] MEDS ORDERED: FUROSEMIDE 20 MG/2 ML IV ONE (12:00)
[2018-04-25 13:59] VITALS: BP 154/92
[2018-04-25] MEDS ORDERED: PHARMACY MAY ADJ FOR RENAL FX MC PRN (15:30)
[2018-04-25 20:02] VITALS: BP 160/92
[2018-04-25] MEDS: INSULIN GLARGINE 100 UNITS/ML, PEN SQ-INSULIN SCH (20:13)
[2018-04-25] MEDS: CEFDINIR 300 MG CAPSULE PO SCH (20:13)
[2018-04-26 02:26] VITALS: BP 170/101
[2018-04-26 03:00] VITALS: BP 162/95
[2018-04-26] MEDS: HEPARIN 5,000 UNITS/ML, 1ML SQ SCH (05:20)
[2018-04-26 05:36] LABS: BASOPHILS # (AUTO) 0.03 x10^3/uL (0-0.1); BASOPHILS % (AUTO) 1 % (0-1); EOSINOPHILS # (AUTO) 0.16 x10^3/uL (0-0.4); EOSINOPHILS % (AUTO) 3 % (1-7); LYMPHOCYTES % (AUTO) 40 % (22-44); MD NO; MEAN CORPUSCULAR HEMOGLOBIN 30.9 pg (27.5-34.5); MEAN CORPUSCULAR HGB CONC 33.9 g/dL (33.2-36.2); MEAN CORPUSCULAR VOLUME 91.2 fL (81-97); MONOCYTES # (AUTO) 0.57 x10^3/uL (0.2-0.8); MONOCYTES % (AUTO) 10 % (2-9); NEUTROPHILS # (AUTO) 2.68 x10^3/uL (1.8-6.8); NEUTROPHILS % (AUTO) 47 % (42-75); PLATELET COUNT 213 x10^3/uL (130-400); RED BLOOD COUNT 4.31 x10^6/uL (4.38-5.82)
[2018-04-26 05:50] LABS: ANION GAP 9 mmol/L (5-15); CALCIUM 7.7 mg/dL (8.5-10.1); CHLORIDE 110 mmol/L (98-107)
[2018-04-26] MEDS: INSULIN LISPRO 100 UNITS/ML, PEN SQ-INSULIN SCH (07:00)
[2018-04-26 07:55] VITALS: BP 173/101
[2018-04-26] MEDS: CEFDINIR 300 MG CAPSULE PO SCH (08:16)
[2018-04-26] MEDS: GABAPENTIN 300 MG CAPSULE PO SCH (08:17)
[2018-04-26] MEDS: TAMSULOSIN 0.4 MG CAP.ER.24H PO SCH (08:17)
[2018-04-26] MEDS: AZITHROMYCIN 250 MG TABLET PO SCH (08:17)
[2018-04-26] MEDS: METOPROLOL TARTRATE 25 MG TABLET PO SCH (08:17)
[2018-04-26] MEDS: ASPIRIN 81 MG TABLET EC PO SCH (08:18)
[2018-04-26] MEDS ORDERED: FUROSEMIDE 20 MG/2 ML IV SCH (09:00)
[2018-04-26 10:00] VITALS: BP 175/102
[2018-04-26] MEDS: hydrALAzine 20 MG/ML, 1ML IVPush PRN (10:04)
[2018-04-26] MEDS ORDERED: CEFD300C37 PO (11:12)
[2018-04-26] MEDS ORDERED: AZIT250T89 PO (11:12)
[2018-04-26] MEDS ORDERED: GUAI5SYR PO (11:12)
== END 2018-04-26 11:10 | disposition left against medical advice (07) | DRG 291 ==
LOC: ED 12:27 → EDIP 13:50 → 4WST 14:30
PROVIDERS: ADMIT Internal Medicine; ATTEND Internal Medicine
DX: I13.0 Hypertensive heart and chronic kidney disease with heart failure and stage 1 through stage 4 chronic kidney disease, or unspecified chronic kidney disease (principal); I50.33 Acute on chronic diastolic (congestive) heart failure; E43 Unspecified severe protein-calorie malnutrition; E87.2 Acidosis; I24.8 Other forms of acute ischemic heart disease; F31.9 Bipolar disorder, unspecified; E11.22 Type 2 diabetes mellitus with diabetic chronic kidney disease; E11.40 Type 2 diabetes mellitus with diabetic neuropathy, unspecified; E78.5 Hyperlipidemia, unspecified; F12.90 Cannabis use, unspecified, uncomplicated; F20.9 Schizophrenia, unspecified; F41.1 Generalized anxiety disorder; N18.3 Chronic kidney disease, stage 3 (moderate); R79.89 Other specified abnormal findings of blood chemistry; Z53.21 Procedure and treatment not carried out due to patient leaving prior to being seen by health care provider; Z68.34 Body mass index [BMI] 34.0-34.9, adult; I25.2 Old myocardial infarction; Z79.4 Long term (current) use of insulin; Z91.19 Patient's noncompliance with other medical treatment and regimen; Z90.49 Acquired absence of other specified parts of digestive tract
CPT/HCPCS: 36415; 71046; 80048; 80053; 80061; 82962; 83036; 83880; 84484; 85025; 85610; 85730; 87040; 93005; 96374; 96375; 99285; G0378; J0456; J0696; J1644; J0360; J1815; J1940; J7050

== ENCOUNTER 2018-08-03 16:56 | Inpatient (IN) | payer MEDICAID, MEDICARE ==
[~2018-08-03] VITALS: Ht 162.6 cm; Wt 82.0 kg
[~2018-08-03 16:56] MED LIST changes: -AMLO2.5T3 PO; +AMLO2.5T5 PO; -ASPI-621 PO; +ASPI81TA45 PO; +AZIT250T89 PO; +CEFD300C37 PO; +GUAI5SYR PO
--- NOTE | 2018-08-03 17:03 | NUR ---
SB[facility] REPORT RECEIVED FROM [facility]. DR. MACHUCA AT BEDSIDE. BREATHING TREATMENT COMPLETE.
[2018-08-03] MEDS ORDERED: ALBUTEROL SULFATE 2.5 MG/3 ML NPPB ONE (17:20)
[2018-08-03] MEDS ORDERED: ALBUTEROL/IPRATROPIUM 2.5MG/0.5MG, 3 ML NEB ONE (17:20)
[2018-08-03] MEDS ORDERED: ALBUTEROL/IPRATROPIUM 2.5MG/0.5MG, 3 ML ONE (17:21)
[2018-08-03] MEDS ORDERED: ALBUTEROL SULFATE 2.5MG/0.5ML ONE (17:21)
[2018-08-03] MEDS ORDERED: methylPREDNISolone SOD SUCC 125 MG/2 ML ONE (17:22)
[2018-08-03] MEDS ORDERED: hydrALAzine 20 MG/ML, 1ML ONE ×2 (17:22→20:02)
[2018-08-03] MEDS ORDERED: methylPREDNISolone SOD SUCC 125 MG/2 ML IVP ONE (17:30)
[2018-08-03] MEDS ORDERED: SODIUM CHLORIDE FLUSH 10ML SYR IVF ONE (17:30)
[2018-08-03] MEDS ORDERED: ALBUTEROL/IPRATROPIUM 2.5MG/0.5MG, 3 ML NPPB SCH (17:30)
[2018-08-03] MEDS ORDERED: hydrALAzine 20 MG/ML, 1ML IV ONE (17:30)
--- NOTE | 2018-08-03 17:31 | NUR ---
PATIENT MEDICATED WITH SOLUMEDROL AND HYDRALAZINE. [facility] BREATHING TREATMENT COMPLETE. PT REPORTS SOME RELIEF OF SOB.
[2018-08-03 17:33] LABS: BASOPHILS # (AUTO) 0.02 x10^3/uL (0-0.1); BASOPHILS % (AUTO) 0 % (0-1); EOSINOPHILS # (AUTO) 0.14 x10^3/uL (0-0.4); EOSINOPHILS % (AUTO) 3 % (1-7); LYMPHOCYTES # (AUTO) 1.51 x10^3/uL (1-3.4); LYMPHOCYTES % (AUTO) 29 % (22-44); MD NO; MEAN CORPUSCULAR HEMOGLOBIN 30.4 pg (27.5-34.5); MEAN CORPUSCULAR HGB CONC 33.7 g/dL (33.2-36.2); MEAN CORPUSCULAR VOLUME 90.1 fL (81-97); MEAN PLATELET VOLUME 8.2 fL (7.4-10.4); MONOCYTES # (AUTO) 0.51 x10^3/uL (0.2-0.8); MONOCYTES % (AUTO) 10 % (2-9); NEUTROPHILS # (AUTO) 2.97 x10^3/uL (1.8-6.8); NEUTROPHILS % (AUTO) 58 % (42-75); PLATELET COUNT 192 x10^3/uL (130-400); RED BLOOD COUNT 4.39 x10^6/uL (4.38-5.82); RED CELL DISTRIBUTION WIDTH 13.9 % (9.4-14.8)
[2018-08-03 17:43] LABS: ALBUMIN 1.9 g/dL (3.4-5.0); ANION GAP 11 mmol/L (5-15); CALCIUM 6.1 mg/dL (8.5-10.1); CHLORIDE 112 mmol/L (98-107); CREATININE 4.59 mg/dL (0.7-1.3)
[2018-08-03 17:44] LABS: D-DIMER 2.49 ug/mlFEU (0.00-0.52); PROTHROMBIN TIME 10.6 Seconds (9.6-11.5)
[2018-08-03 17:48] LABS: TROPONIN I 0.256 ng/mL (0.000-0.045)
[2018-08-03] MEDS ORDERED: ALBUTEROL SULFATE 2.5 MG/3 ML NPPB PRN (18:00)
[2018-08-03] MEDS ORDERED: CEFTRIAXONE 1,000 MG in SODIUM CHLORIDE 0.9% 50 ML IVPB ONE (18:30)
[2018-08-03] MEDS ORDERED: ASPIRIN 81 MG TABLET CHEW PO ONE (18:30)
[2018-08-03] MEDS ORDERED: AZITHROMYCIN 500 MG in SODIUM CHLORIDE 0.9% 250 ML IVPB ONE (18:30)
[2018-08-03] MEDS ORDERED: CEFTRIAXONE PMX 1GM/50ML 50 ML ONE (18:41)
[2018-08-03] MEDS ORDERED: ASPIRIN 81 MG TABLET EC ONE (18:41)
[2018-08-03] MEDS ORDERED: BENZONATATE 100 MG CAPSULE ONE (18:41)
[2018-08-03] MEDS ORDERED: ASPIRIN 81 MG TABLET CHEW ONE (18:42)
[2018-08-03] MEDS ORDERED: BENZONATATE 100 MG CAPSULE PO ONE (19:00)
--- NOTE | 2018-08-03 19:02 | NUR ---
RECEIVED BS REPORT FROM [facility] TO ASSUME PT. CARE.
--- NOTE | 2018-08-03 19:08 | NUR ---
SBAR HAND-OFF REPORT GIVEN TO [facility].
--- NOTE | 2018-08-03 19:16 | NUR ---
IV ABX INFUSING PER ORDER. PT. RESTING ON GURNEY WITH EYES CLOSED; WAKES EASILY TO VOICE. DENIES PAIN. CONTINUOUS PULSE OX, B/P, AND HEART MONITORS IN PLACE. CALL LIGHT IN REACH. PT. REQUESTING SPRITE; WILL DISCUSS VS AND POC WITH [facility].
--- NOTE | 2018-08-03 19:33 | NUR ---
PT. PROVIDED [facility] SPRITE AFTER OK FROM DR. MACHUCA. PT. TO BE ADMIT BY [facility]. DISCUSSED VS WITH DR. MACHUCA WELL; NO NEW ORDERS AT THIS TIME.
[2018-08-03] MEDS ORDERED: ACETAMINOPHEN 325 MG TABLET PO PRN (20:00)
[2018-08-03] MEDS ORDERED: CEFTRIAXONE PMX 1GM/50ML 50 ML IV SCH (20:00)
[2018-08-03] MEDS ORDERED: HEPARIN 5,000 UNITS/ML, 1ML SQ SCH (20:00)
[2018-08-03] MEDS ORDERED: POLYETHYLENE GLYCOL 17 GM PACKET PO PRN (20:00)
[2018-08-03] MEDS ORDERED: SODIUM CHLORIDE 0.45% 1,000 ML IV SCH (20:00)
[2018-08-03] MEDS ORDERED: GUAIFENESIN/DM 200-20MG, 10ML UDC PO PRN (20:00)
[2018-08-03] MEDS ORDERED: ONDANSETRON ODT 4 MG PO PRN (20:00)
[2018-08-03] MEDS ORDERED: NITROGLYCERIN 0.4 MG BOTTLE (25 TABS) SL PRN (20:00)
[2018-08-03] MEDS ORDERED: DOXYCYCLINE 100 MG in DEXTROSE 5% 250 ML IV SCH (20:00)
[2018-08-03] MEDS ORDERED: BISACODYL 10 MG SUPP PR PRN (20:00)
[2018-08-03] MEDS ORDERED: hydrALAzine 20 MG/ML, 1ML IVPush PRN (20:00)
--- NOTE | 2018-08-03 20:32 | NUR ---
B/P IMPROVED AFTER MEDICATED WITH PRN B/P MED PER OCT. PT. DENIES DISCOMORT. CRACKERS PROVIDED PER REQUEST FOR FOOD. PT. TO GO UP TO FLOOR SHORTLY.
[2018-08-03 20:38] LABS: HEMOGLOBIN A1C 6.8 % (4.2-6.3)
--- NOTE | 2018-08-03 20:40 | NUR ---
REPORT TO [facility]. FLOOR READY FOR PT. TRANSPORT. PT. TO [employer] FOR SCAN AT THIS TIME; TECH STATES HE WILL TAKE PT. TO [phone] WHEN SCAN IS COMPLETED.
[2018-08-03] MEDS ORDERED: GABAPENTIN 300 MG CAPSULE PO SCH (21:00)
[2018-08-03] MEDS ORDERED: INSULIN GLARGINE 100 UNITS/ML, PEN SQ-INSULIN SCH (21:00)
[2018-08-03] MEDS ORDERED: METOPROLOL TARTRATE 25 MG TABLET PO SCH (21:00)
[2018-08-03 21:23] VITALS: BP 159/92
[2018-08-04] MEDS ORDERED: SENNA/DOCUSATE TABLET PO SCH (09:00)
[2018-08-04] MEDS ORDERED: ASPIRIN 81 MG TABLET EC PO SCH (09:00)
[2018-08-04] MEDS ORDERED: TAMSULOSIN 0.4 MG CAP.ER.24H PO SCH (09:00)
[2018-08-04] MEDS ORDERED: INSULIN GLARGINE 100 UNITS/ML, PEN SQ-INSULIN SCH (21:00)
== END 2018-08-03 23:45 | disposition left against medical advice (07) | DRG 280 ==
LOC: ED 18:16 → EDIP 19:55 → 5SO 21:27
PROVIDERS: ADMIT Hospitalist; ATTEND Hospitalist
DX: I21.4 Non-ST elevation (NSTEMI) myocardial infarction (principal); J15.9 Unspecified bacterial pneumonia; I50.41 Acute combined systolic (congestive) and diastolic (congestive) heart failure; N17.9 Acute kidney failure, unspecified; I13.0 Hypertensive heart and chronic kidney disease with heart failure and stage 1 through stage 4 chronic kidney disease, or unspecified chronic kidney disease; I31.3 Pericardial effusion (noninflammatory); Z79.4 Long term (current) use of insulin; I16.0 Hypertensive urgency; F41.1 Generalized anxiety disorder; F20.9 Schizophrenia, unspecified; F31.9 Bipolar disorder, unspecified; E78.5 Hyperlipidemia, unspecified; E11.22 Type 2 diabetes mellitus with diabetic chronic kidney disease; N18.3 Chronic kidney disease, stage 3 (moderate); E83.51 Hypocalcemia; Z59.0 Homelessness; I25.2 Old myocardial infarction; Z91.14 Patient's other noncompliance with medication regimen
CPT/HCPCS: 36415; 71046; 78582; 80048; 82040; 82306; 83036; 83605; 83735; 83880; 83970; 84439; 84484; 85025; 85379; 85610; 85730; 87040; 93005; 94640; 96365; 96367; 96375; 99291; G0378; J0456; J0696; J1644; J7060; J7613; J7620; A9540; A9558; C9898; J0360; J1815; J2930; J7050